=== PATIENT | male | born 1975 | race Caucasian/White ===

== ENCOUNTER 2017-09-26 18:32 | Emergency (ER) | payer MEDICARE, OTHER ==
--- NOTE | 2017-09-26 19:12 | ERNOTE ---
<Jen Crowell - Last Filed: 09/26/17 19:19> Lower Extremity HPI - Narrative Date of Service: 09/26/17 - General Time Seen by Provider: 09/26/17 18:41 Source: patient Exam Limitations: no limitations - Immun/Allergies/Home Medications Immunizations: IMMUNIZATION HX Immunizations Up to Date Yes History of Influenza Vaccine No Hx Pneumococcal Vaccination No Allergies/Adverse Reactions: Allergies Allergy/AdvReac Type Severity Reaction Status Date / Time No Known Allergies Allergy Verified 09/26/17 18:45 Home Medications: HOME MEDICATIONS Fenofibrate,Micronized [Fenofibrate] 134 mg PO DAILY 05/23/14 [Last Taken Unknown] Lisinopril 5 mg PO DAILY 05/23/14 [Last Taken Unknown] Rosuvastatin Calcium [Crestor] 40 mg PO DAILY 05/23/14 [Last Taken Unknown] metFORMIN HCL [Metformin HCl ER] 500 mg PO DAILY 05/23/14 [Last Taken Unknown] Insulin Glargine,Hum.rec.anlog [Lantus Solostar] 10 unit SQ HS 11/28/15 [Last Taken Unknown] Pioglitazone HCl [Actos] 30 mg PO DAILY 11/28/15 [Last Taken Unknown] metFORMIN HCL [Glucophage] 1,000 mg PO HS 11/28/15 [Last Taken Unknown] - History of Present Illness Narrative: This patient presents to the emergency room complaining that 2 days ago in the morning he hit his head on the sink. He does not report any loss of consciousness dizziness and blurry vision at all he did sustain an abrasion to the right forehead when he hit his head on the sink. Patient states that since then he has experienced shaking of his right leg from the knee down and that he is unable to curl his toes strongly plantar-arteaga like he can his left toes. His gait is undisturbed he denies any headache dizziness or blurry vision. Review of Systems - Review of Systems Constitutional: Present: no symptoms reported EYE: Present: no symptoms reported ENT: Present: no symptoms reported Respiratory: Present: no symptoms reported Cardiology: Present: no symptoms reported Gastrointestinal/Abdominal: Present: no symptoms reported Genitourinary: Present: no symptoms reported Musculoskeletal: Present: See HPI Skin: Present: no symptoms reported - Patient's Past Medical History Patient History - Medical: Anxiety, Diabetes Type 2, Depression Patient History - Cardiac/Respiratory: Asthma, Hypertension, Hyperlipidemia Patient History - Cancer: No Hx of Cancer Patient History - Surgical Procedures: No surgical history - Family History Father Family History - Cardiac/Respiratory: Coronary Heart Disease, Myocardial Infarction - Social History Living Situations: home Abuse History: No History of abuse Psych History: Hx of Anxiety, Hx of Depression Smoking Status: Current every day smoker Have you smoked in the past 12 months: Yes Do you dip or chew tobacco: No - Immunizations Immunizations Up to Date: Yes Hx Pneumococcal Vaccination: No History of Influenza Vaccine: No Physical Exam - Physical Exam General Appearance: Present: wd/wn, alert, no apparent distress Head Exam: Present: normal inspection, no evidence of injury Eye Exam: Normal inspection: bilateral, PERRL: bilateral, EOMI: bilateral Ears, Nose, Throat: Present: normal ENT inspection Neck: Present: normal inspection, nontender, supple, full range of motion Respiratory: Present: no respiratory distress, normal breath sounds, no accessory muscle use, chest nontender - no bruits, lungs clear Cardiovascular/Chest: Present: regular rate, rhythm, no murmur, normal peripheral pulses Extremity Exam: Present: normal inspection - there is absolutely no lesions abnormalities deformities of the right lower extremity from the knee down. Patient is well able to plantar flex his toes but not as tight as the left side. The patient is intact, non-tender, normal range of motion, no edema Neurological Exam: Present: alert, oriented, normal mood/affect, no motor/ sensory deficits - with the exception the patient cannot curl his right toes nearly as strong as the left toes. ED Progress - Results and Orders Patient's Lab Results:: I have reviewed the patient's lab results. - Vital Signs Patient's Vital Signs:: I have reviewed the patient's vital signs. Vital Signs: Vital Signs 09/26/17 18:38 Temperature 36.8 C Pulse Rate 97 Respiratory 13 Rate Blood Pressure 190/101 O2 Sat by Pulse 97 Oximetry - EKG EKG: NSR - sinus rhythm without any ST or T changes - Progress/Reassessment Chief Complaint: Lower Extremity Pain/ Injury - Transfer of Care Physician Sign Out: Jen Crowell Receiving Physician: Jasper Lopes Pending Results: CT/MRI results, Labs Expected Disposition: Admit Departure Clinical Impression: Peripheral neuropathy Qualifiers: Peripheral neuropathy type: idiopathic neuropathy, unspecified Qualified Code(s ): G60.9 - Hereditary and idiopathic neuropathy, unspecified Hyperglycemia due to type 2 diabetes mellitus Qualifiers: 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 Condition: Fair Instructions: Peripheral Neuropathy, Hyperglycemia, [id number] Additional Instructions: See your primary care provider as soon as possible. No work this weekend. work on getting control of your blood sugars. Referrals: Daniel Butterfield MD [Primary Care Provider] - <Jasper Lopes - Last Filed: 09/26/17 23:28> Lower Extremity HPI - Immun/Allergies/Home Medications Immunizations: IMMUNIZATION HX Immunizations Up to Date Yes History of Influenza Vaccine No Hx Pneumococcal Vaccination No ED Progress - Results and Orders Results and Orders: Laboratory Tests 09/26/17 09/26/17 09/26/17 19:04 19:35 19:35 WBC 8.3 Hgb 15.4 Hct 44.6 Plt Count 280 ESR 58 H Sodium Potassium Chloride Carbon Dioxide BUN Creatinine Random Glucose Mean Blood Glucose Hemoglobin A1c Calcium Total Bilirubin AST ALT Alkaline Phosphatase C-Reactive Prot, Quant Total Protein Albumin Urine Color Pale yellow Urine Appearance Clear Urine pH 6.0 Ur Specific Hubbard <=1.005 Urine Protein Negative Urine Glucose (UA) >=1000 H Urine Ketones Negative Urine Blood Negative Urine Nitrate Negative Urine Bilirubin Negative Urine Urobilinogen Normal Ur Leukocyte Esterase Negative Urine RBC None seen Urine WBC None seen Ur Epithelial Cells 0-5 Urine Bacteria Trace Urine Culture Comments No culture indicated 09/26/17 09/26/17 19:35 19:35 WBC Hgb Hct Plt Count ESR Sodium 136 Potassium 4.2 Chloride 97 Carbon Dioxide 27.7 BUN 13 Creatinine 1.28 Random Glucose 431 H Mean Blood Glucose 337 Hemoglobin A1c 12.7 H Calcium 9.3 Total Bilirubin 0.3 AST 15 ALT 27 Alkaline Phosphatase 149 C-Reactive Prot, Quant 1.1 H Total Protein 8.0 Albumin 3.4 Urine Color Urine Appearance Urine pH Ur Specific Hubbard Urine Protein Urine Glucose (UA) Urine Ketones Urine Blood Urine Nitrate Urine Bilirubin Urine Urobilinogen Ur Leukocyte Esterase Urine RBC Urine WBC Ur Epithelial Cells Urine Bacteria Urine Culture Comments - Vital Signs Vital Signs: Vital Signs 09/26/17 18:38 Temperature 36.8 C Pulse Rate 97 Respiratory 13 Rate Blood Pressure 190/101 O2 Sat by Pulse 97 Oximetry - CT/Ultrasound CT/Ultrasound Narrative: CT head without: IMPRESSION: 1. REMOTE APPEARING RIGHT BASAL GANGLIA LACUNAR INFARCT. 2. NONSPECIFIC PARANASAL SINUS DISEASE. 3. NO OTHER EVIDENCE FOR ACUTE INTRACRANIAL PATHOLOGY. Electronically signed by Elan Sampson M.D.. - Progress/Reassessment Progress Note-Subjective: 09/25/17 21:30 Pt desires to go to the bathroom. Pt able to walk without assistance. Describes subjective paresthesia but has full sensation. 09/26/17 22:05 Discussed non-specific findings of elevated CRP and ESR. Discussed old lacunar infarct on CT and further workup on risk factors for stroke. Discussed increased risk with elevated blood sugars and he admits that his blood sugars run high frequently
[2017-09-26 19:26] LABS: Urine Bilirubin Negative (NEGATIVE); Urine Blood Negative /ul (NEGATIVE); Urine Ketone Negative (NEGATIVE); Urine Nitrite Negative (NEGATIVE); Urine Protein Negative (NEGATIVE); Urine Specific Gravity <=1.005 SP.GR. (1.005-1.030); Urine Urobilinogen Normal (NORMAL)
[2017-09-26 19:34] LABS: Urine Appearance Clear; Urine Bacteria TRACE; Urine Color Pale Yellow; Urine RBC None Seen /hpf (0-5); Urine WBC None Seen /hpf (0-5)
[2017-09-26 19:42] LABS: Hematocrit 44.6 % (42.0-52.0); Hemoglobin 15.4 gm/dL (13.5-18.0); Mean Cell Volume 95.5 fl (78-100); Mean Corpuscular Hgb Conc 34.5 g/dl (32-36); Neutrophil # 4.9 K/mm3 (1.3-6.0); Neutrophil % 59.2 % (42-75.0); Platelet Count 280 K/mm3 (150-450); Red Blood Count 4.67 M/mm3 (4.7-6.0); Red Cell Distribution Width 11.9 % (11.5-14.0); White Blood Count 8.3 K/mm3 (4.0-10.5)
[2017-09-26 19:58] LABS: Albumin * 3.4 gm/dl (3.4-5.0); Anion Gap 15.5 mmol/L (6.8-13.8); BUN/Creatinine Ratio 10.2 (9.0-21.6); Bilirubin, Total 0.3 mg/dL (0.0-1.1); CRP 1.1 mg/dL (0.0-0.9); Ca. Corrected For Albumin 9.5 mg/dL (8.4-10.2); Calcium * 9.3 mg/dL (7.9-10.9); Carbon Dioxide 27.7 mmol/L (24-32.6); Potassium 4.2 mmol/L (3.4-4.6)
[2017-09-26 19:59] LABS: Hemoglobin A1C 12.7 % (4.00-6.0)
[2017-09-27 02:53] VITALS: BP 153/90
== END 2017-09-26 22:27 | disposition short-term general hospital (02) ==
LOC: ER 18:32
DX: G60.9 Hereditary and idiopathic neuropathy, unspecified (principal); E11.65 Type 2 diabetes mellitus with hyperglycemia

== ENCOUNTER 2017-10-09 13:50 | Inpatient (IN) | payer MEDICARE, OTHER ==
[2017-10-09] MEDS ORDERED: NORMAL SALINE 1,000 ML IV ONE (14:20)
--- NOTE | 2017-10-09 14:21 | ERNOTE ---
Neuro HPI ER Record Presenting Symptoms: other - sluggish in his response according to somebody who lives at his boarding house Time Seen by Provider: 10/09/17 14:03 Source: other - friend Exam Limitations: other - possible underlying cognitive impairment Immunizations: IMMUNIZATION HX Immunizations Up to Date Yes History of Influenza Vaccine Yes Hx Pneumococcal Vaccination Yes Allergies/Adverse Reactions: Allergies Allergy/AdvReac Type Severity Reaction Status Date / Time No Known Allergies Allergy Verified 10/09/17 14:06 Home Medications: HOME MEDICATIONS Lisinopril 5 mg PO DAILY 05/23/14 [Last Taken Unknown] Rosuvastatin Calcium [Crestor] 40 mg PO DAILY 05/23/14 [Last Taken Unknown] metFORMIN HCL [Metformin HCl ER] 500 mg PO BID 05/23/14 [Last Taken Unknown] Insulin Glargine,Hum.rec.anlog [Lantus Solostar] 10 unit SQ HS 11/28/15 [Last Taken Unknown] Pioglitazone HCl [Actos] 30 mg PO DAILY 11/28/15 [Last Taken Unknown] - History of Present Illness Narrative: Patient brought in by somebody who stays at his boarding house who states he just does not appear to be himself. She believes he is slower to respond Onset: other - unknown Severity: mild - Character of Deficits Additional Deficits: Present: other - none Baseline Cognition: Present: alert, oriented x 4 - according to his roommate Baseline Gait: Present: walks w/o assistance Associated Symptoms: Reports: altered mental status - per his friend Prior Treament: Reports: recently seen, treated by physician Review of Systems - Review of Systems Constitutional: Present: See HPI EYE: Present: no symptoms reported ENT: Present: no symptoms reported Respiratory: Present: no symptoms reported Cardiology: Present: no symptoms reported Gastrointestinal/Abdominal: Present: no symptoms reported Genitourinary: Present: no symptoms reported Musculoskeletal: Present: no symptoms reported Skin: Present: no symptoms reported Neurological: Present: anxiety, depressed Endocrine: Present: no symptoms reported Hematologic/Lymphatic: Present: no symptoms reported Psych: Present: no symptoms reported - Patient's Past Medical History Patient History - Medical: Anxiety, Diabetes Type 1, Depression Patient History - Cardiac/Respiratory: Asthma, Hypertension, Hyperlipidemia Patient History - Cancer: No Hx of Cancer Patient History - Surgical Procedures: No surgical history Patient History - Other: None - Family History Father Family History - Cardiac/Respiratory: Coronary Heart Disease, Myocardial Infarction - Social History Living Situations: home Abuse History: No History of abuse Psych History: Hx of Anxiety, Hx of Depression Smoking Status: Current every day smoker Have you smoked in the past 12 months: Yes Alcohol Use: occasionally Drug Use: none - Immunizations Immunizations Up to Date: Yes Hx Pneumococcal Vaccination: Yes History of Influenza Vaccine: Yes Physical Exam - Physical Exam General Appearance: Present: wd/wn, alert, no apparent distress, lethargic Eye Exam: Normal inspection: bilateral, PERRL: bilateral Ears, Nose, Throat: Present: normal pharynx, dry mucous membranes Neck: Present: normal inspection, nontender Respiratory: Present: no respiratory distress, normal breath sounds, no accessory muscle use, chest nontender, lungs clear Cardiovascular/Chest: Present: regular rate, rhythm, no murmur, normal peripheral pulses Gastrointestinal/Abdominal: Present: normal bowel sounds, nontender, nondistended, soft, no organomegaly Rectal Exam: Present: deferred Back Exam: Present: normal inspection, normal range of motion Extremity Exam: Present: normal inspection, non-tender, no edema, normal range of motion Neurological Exam: Present: alert, oriented, normal mood/affect Skin Exam: Present: normal color, warm/dry Lymphatic Exam: Present: no adenopathy ED Progress - Results and Orders Patient's Lab Results:: I have reviewed the patient's lab results. - Vital Signs Patient's Vital Signs:: I have reviewed the patient's vital signs. Vital Signs: Vital Signs 10/09/17 13:53 Temperature 36.3 C L Pulse Rate 83 Respiratory 16 Rate Blood Pressure 156/88 O2 Sat by Pulse 100 Oximetry - CT/Ultrasound CT/Ultrasound Narrative: CT of the head was reviewed by me - Progress/Reassessment Chief Complaint: Altered Mental Status Progress:: Unchanged Plan - Plan Plan: It is entirely possible that the patient has suffered a left frontal lobe ischemic CVA. Patient will need to be admitted for MRI/MRA probable echocardiogram and carotid studies. Unclear exactly when the symptoms started the last time he was seen normal was 1-2 days ago so while TPA was considered is not an option as he do not have a definitive timeline for the administration of thrombolytic. Departure Clinical Impression: CVA (cerebral vascular accident) Qualifiers: CVA mechanism: unspecified Qualified Code(s): I63.9 - Cerebral infarction, unspecified - Departure Disposition: [facility] Condition: Fair
[2017-10-09 14:27] LABS: Hematocrit 49.4 % (42.0-52.0); Hemoglobin 16.7 gm/dL (13.5-18.0); Mean Cell Volume 97.6 fl (78-100); Mean Corpuscular Hgb Conc 33.8 g/dl (32-36); Mean Platelet Volume 9.6 fl (6.0-9.5); Neutrophil # 4.3 K/mm3 (1.3-6.0); Neutrophil % 56.7 % (42-75.0); Platelet Count 286 K/mm3 (150-450); Red Blood Count 5.06 M/mm3 (4.7-6.0); Red Cell Distribution Width 11.9 % (11.5-14.0); White Blood Count 7.6 K/mm3 (4.0-10.5)
[2017-10-09 14:38] LABS: Urine Appearance Clear; Urine Bacteria None Seen; Urine Bilirubin Negative (NEGATIVE); Urine Blood Negative /ul (NEGATIVE); Urine Color Dark Yellow; Urine Ketone 5 mg/dL (NEGATIVE); Urine Mucus Few - 1+; Urine Nitrite Negative (NEGATIVE); Urine Protein 15 mg/dL (NEGATIVE); Urine RBC None Seen /hpf (0-5); Urine Specific Gravity >=1.030 SP.GR. (1.005-1.030); Urine Urobilinogen Normal (NORMAL); Urine WBC TRACE /hpf (0-5)
[2017-10-09 14:40] LABS: ALT 39 U/L (19-67); AST 25 U/L (0-48); Albumin * 4.1 gm/dl (3.4-5.0); Alkaline Phosphatase * 124 U/L (50-170); Anion Gap 13.8 mmol/L (6.8-13.8); BUN/Creatinine Ratio 12.5 (9.0-21.6); Bilirubin, Total 0.6 mg/dL (0.0-1.1); Blood Urea Nitrogen 15 mg/dL (6-23); Ca. Corrected For Albumin 9.6 mg/dL (8.4-10.2); Carbon Dioxide 29.3 mmol/L (24-32.6); Chloride 99 mmol/L (97-106); Glucose * 197 mg/dL (70-110); Potassium 4.1 mmol/L (3.4-4.6); Sodium 138 mmol/L (132-142); Total Protein 9.3 gm/dL (6.2-8.2)
[2017-10-09 14:53] LABS: Cocaine Ur Negative (NEGATIVE); Urine Barbiturate Negative (NEGATIVE); Urine Benzodiazepines Negative (NEGATIVE); Urine Opiates Negative (NEGATIVE); Urine PCP Negative (NEGATIVE); Urine THC Negative (NEGATIVE)
[2017-10-09 15:57] LABS: Prothrombin Time (Patient) 9.8 Seconds (9.0-11.0)
[2017-10-09 15:58] LABS: INR 0.98 INR (0.90-1.10)
[2017-10-09 16:17] LABS: Hemoglobin A1C 13.6 % (4.00-6.0)
[2017-10-09] MEDS: NICOTINE 21 MG PATC TD SCH (18:08)
[2017-10-09] MEDS ORDERED: INSULIN GLARGINE,HUM.REC.ANLOG 100 UNITS/ML VIAL SC SCH (18:30)
[2017-10-09] MEDS: INSULIN REGULAR, HUMAN 100 UNITS/ML VIAL SC SCH (20:30)
[2017-10-09] MEDS: INSULIN GLARGINE,HUM.REC.ANLOG 100 UNITS/ML VIAL SC SCH (20:55)
[2017-10-10 06:25] LABS: Iron 63 mcg/dL (35-120); Transferrin Sat. (% Sat.) 23 % (15-55)
--- NOTE | 2017-10-10 08:27 | HP ---
Chief Complaint - Chief Complaint Date of Service: 10/09/17 Time of Service: 17:00 Chief Complaint: "I think I had I had a light stroke a week ago". Difficulty in talking. History of Present Illness: Patient is a 41-year-old WM with a history of poorly controlled DM, nicotine abuse who apparently came to the ER 1 week ago because of RT leg weakness/ shaking and a fall when he hit head against a sink. CT of the head W/O on revealed remote-appearing right-sided basal ganglia lacunar infarct, nonspecific paranasal sinus disease and no focal abnormal hypodensities to suggest acute vascular territory infarcts. Patient presents today with right-sided leg and arm weakness and confusion and difficulty in speech or 1-[address] of head W/O on 10/09/17: Left frontal lobe hypodensity infarct/mass. Recommend head MRI w/o and w/for further evaluation. Labs on admission: A1c 13.6[ average 367 mg/dl]. Patient had dysarthria and right-sided weakness on examination. Patient states he may have type 1 diabetes; need to get old records for clarification - Patient's Past Medical History Additional info: PAST MEDICAL HISTORY: Diabetes type II, hyperlipidemia, anxiety and depression, asthma/COPD. Patient History - Cancer: No Hx of Cancer Patient History - Surgical Procedures: No surgical history Patient History - Other: None - Family History Mother Family History - Medical: - 66- kidney and uterine Cancer. Father Family History - Cardiac/Respiratory: Myocardial Infarction - 65- CABG ; alive 67 Family History - Cancer: No pertinent family hx Sister Family History - Medical: Other - 40-PCOS - Social History Living Situations: alone Abuse History: No History of abuse Psych History: Hx of Anxiety, Hx of Depression Smoking Status: Current every day smoker - 1.5 PPD since age 21 Have you smoked in the past 12 months: Yes Do you dip or chew tobacco: No Patient requests Smoking Cessation Consult: Yes Initiate information on Smoking Cessation: Yes Alcohol Use: occasionally - few beers on weekend Drug Use: none - Immunizations Immunizations Up to Date: Yes Hx Pneumococcal Vaccination: Yes History of Influenza Vaccine: Yes Immunizations: IMMUNIZATION HX Immunizations Up to Date Yes History of Influenza Vaccine Yes Hx Pneumococcal Vaccination Yes Allergies/Adverse Reactions: Allergies Allergy/AdvReac Type Severity Reaction Status Date / Time No Known Allergies Allergy Verified 10/09/17 16:42 Home Medications: HOME MEDICATIONS Lisinopril 5 mg PO DAILY 05/23/14 [Last Taken 10/09/17 09:00] Rosuvastatin Calcium [Crestor] 40 mg PO DAILY 05/23/14 [Last Taken 10/08/17 21: 00] metFORMIN HCL [Metformin HCl ER] 500 mg PO BID 05/23/14 [Last Taken 10/09/17 09: 00] Insulin Glargine,Hum.rec.anlog [Lantus Solostar] 40 unit SQ HS 11/28/15 [Last Taken 10/08/17 21:00] Pioglitazone HCl [Actos] 30 mg PO DAILY 11/28/15 [Last Taken 10/08/17 21:00] Exam - Exam Vital Signs: Vital Signs - Last Taken Temp 36.4 C L 10/10/17 06:42 Pulse 64 10/10/17 06:42 Resp 18 10/10/17 06:42 BP 131/77 10/10/17 06:42 Pulse Ox 94 10/10/17 06:42 Constitutional: Present: Young - chronically ill looking, has difficulty in getting out words. Eye Exam: bilateral eye: PERRL, EOMI Neck: Present: normal inspection, trachea midline Respiratory: Present: no respiratory distress, no accessory muscle use, decreased breath sounds Cardiovascular/Chest: Present: regular rate, rhythm. Absent: tachycardia Peripheral Pulses: carotid (R): 2+, carotid (L): 2+ Abdomen: Present: Normal bowel sounds, soft, nontender, nondistended /Rectal: Present: Exam deferred Neurologic: Present: oriented x 3, abnormal gait, facial droop - RT, motor weakness - RT sided RUE- 3/5; RLL-4/5; RT- Babinski's positive, LT- WNL., other - dysarthria present Eye contact: Present: cooperative, good eye contact Thoughts: Present: normal thought pattern, no apparent hallucination Diagnostic Studies: Laboratory Tests 10/09/17 14:26 WBC 7.6 Hgb 16.7 Hct 49.4 Plt Count 286 10/09/17 14:26 Plasma Sodium 140 Potassium 4.1 Chloride 99 Carbon Dioxide 29.3 BUN 15 Creatinine 1.20 Est GFR (Non-Af Amer) 70 Calcium Adj for Albumin 9.6 Magnesium 2.0 AST 25 ALT 39 Alkaline Phosphatase 124 Total Protein 9.3 H Albumin 4.1 10/09/17 10/10/17 10/10/17 14:26 05:40 06:00 Mean Blood Glucose 367 Hemoglobin A1c 13.6 H Vitamin B12 [address] W/O:10/09/17: Comparison 09/26/17. 1. There is hypodensity in the left frontal lobe compatible with infarct. Underlying mass cannot be excluded. Recommend head MRI with and without contrast for further evaluation. No positive mass effect/midline shift. No ICH. 2. Remote appearing right basal ganglia lacunar infarct. CXR: 10/10/17: PA and LAT: negative for acute pathology. Assessment/Plan - Narrative Narrative: 1. Acute CVA with ongoing LEFT frontal infarct: Obtain MRI w and w/o for further evaluation. Obtain MRA of head and neck. Obtain ultrasound of the carotids. Start atorvastatin 40 mg daily. Obtain echocardiogram. Discussed in detail about the patient with the stroke team at the [facility] [ Dr. Gillespie]. start aspirin 81/325 mg daily. 2. Poorly controlled DM: A1c over 13.0. Patient states he may have T1 DM however he is on Actos and metformin. Obtain old records. Currently on Lantus 30 units at bedtime and Humalog 8 units with meals. Glucerna at bedtime. 3. Supportive care: Obtain PT/OT and speech therapy. 4. DVT prophylaxis: Enoxaparin 40 mg subq daily CODE STATUS: Full code. 5. Nicotine abuse: 1 pack per day since age 21. Currently on nicotine patch 21 mg per day. - Assessment/Plan (1) Acute thromboembolic cerebrovascular accident (CVA) Assessment: Rt sided weakness with LT frontal infarct. Problem: Acute (2) Uncontrolled diabetes mellitus Problem: Chronic Qualifiers: Diabetes mellitus type: type 2 Diabetes mellitus supervisor intermediates insulin use: unspecified detention insulin use status (3) Nicotine abuse Assessment: 1 PPD since age 21 yrs. Problem: Chronic (4) Hyperlipidemia Assessment: on Rosuvastatin 40 mg PO daily Problem: Chronic Qualifiers: Hyperlipidemia type: unspecified Qualified Code(s): E78.5 - Hyperlipidemia , unspecified
[2017-10-10] MEDS: NORMAL SALINE 1,000 ML IV PRN (08:56)
[2017-10-10] MEDS: INSULIN LISPRO 100 UNITS/ML VIAL SC SCH ×3 (09:01→18:18)
[2017-10-10] MEDS: INSULIN REGULAR, HUMAN 100 UNITS/ML VIAL SC SCH (09:28)
[2017-10-10] MEDS: ASPIRIN 81 MG TABLET.DR PO SCH (17:32)
[2017-10-10] MEDS: ENOXAPARIN SODIUM 40 MG/0.4 ML SYRG SC SCH (17:32)
[2017-10-10] MEDS: NICOTINE 21 MG PATC TD SCH (17:32)
[2017-10-10] MEDS ORDERED: INSULIN LISPRO 100 UNITS/ML VIAL SC ONE (18:17)
--- NOTE | 2017-10-10 18:23 | PN ---
Subjective - Date and Time Seen Date: 10/10/17 Time: 18:19 Subjective Narrative: feels a little better; discussed with patient MRI results. He spent most of the day undergoing testing including MRI, US of carotids and echocardiogram. Speech is slightly improved. Did not undergo any PT/OT. Admits to be being a little depressed and noncompliant with most medications. Objective - Review of Systems Generalized/Overall Review: Denies: Weakness Respiratory: Denies: Cough, Shortness of Breath Cardiac: Denies: Chest Pain, Edema - Vitals Vitals: Last Vital Signs Temp 36.5 C 10/10/17 14:44 Pulse 64 10/10/17 14:44 Resp 18 10/10/17 14:44 BP 117/65 10/10/17 14:44 Pulse Ox 97 10/10/17 14:44 - Exam Constitutional: Present: Young, Looks Older than stated age ENT Exam: Present: hearing grossly normal Neck: Present: normal inspection, trachea midline Cardiovascular/Chest: Present: regular rate, rhythm. Absent: no edema Abdomen: Present: Normal bowel sounds, soft, nontender Extremity: Present: other - RT sided weakness present - 3/5 RUE; 4/5 RLL. Eye contact: Present: cooperative, good eye contact, normal speech Assessment/Plan - Problems/Diagnosis (1) Acute thromboembolic cerebrovascular accident (CVA) Problem: Acute Narrative: After discussion with stroke team at [facility]; patient was started on baby aspirin 81 mg daily, atorvastatin 40 mg daily. 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 (4) Hyperlipidemia Problem: Chronic Qualifiers: Hyperlipidemia type: unspecified Qualified Code(s): E78.5 - Hyperlipidemia , unspecified Narrative: Atorvastatin 40 mg daily
[2017-10-10] MEDS ORDERED: LORazepam 0.5 MG TABLET PO ONE (20:42)
[2017-10-10] MEDS: CYANOCOBALAMIN 1,000 MCG TABLET PO SCH (21:21)
[2017-10-10] MEDS: ATORVASTATIN CALCIUM 40 MG TABLET PO SCH (21:22)
[2017-10-10] MEDS: INSULIN GLARGINE,HUM.REC.ANLOG 100 UNITS/ML VIAL SC SCH (21:24)
[2017-10-11] MEDS: NORMAL SALINE 1,000 ML IV PRN (00:03)
[2017-10-11] MEDS: INSULIN LISPRO 100 UNITS/ML VIAL SC SCH ×3 (07:21→17:15)
[2017-10-11] MEDS: CYANOCOBALAMIN 1,000 MCG TABLET PO SCH (08:35)
[2017-10-11] MEDS: ASPIRIN 81 MG TABLET.DR PO SCH (09:17)
--- NOTE | 2017-10-11 10:04 | PN ---
Subjective - Date and Time Seen Date: 10/11/17 Time: 09:00 Subjective Narrative: patient seen at bedside. admits to feeling a depressed due to several reasons including financial. states speech and RT sided weakness gradually improving. Objective - Review of Systems Generalized/Overall Review: Reports: Weakness. Denies: Chills, Fever EENTM: Denies: Blurred Vision Respiratory: Denies: Cough, Shortness of Breath Cardiac: Denies: Chest Pain, Edema - Vitals Vitals: Vital Signs Temp 36.9 C 10/11/17 08:12 Pulse 69 10/11/17 08:12 Resp 16 10/11/17 08:12 BP 152/80 10/11/17 08:12 Pulse Ox 96 10/11/17 08:12 - EKG/Xray Findings EKG: NSR - Exam Constitutional: Present: Young, Looks Older than stated age - alert and oriented x3 , with less dysarthria ENT Exam: Present: hearing grossly normal - poor dentition Neck: Present: normal inspection, trachea midline Respiratory: Present: normal breath sounds, no accessory muscle use Cardiovascular/Chest: Present: regular rate, rhythm. Absent: tachycardia Abdomen: Present: Normal bowel sounds, soft, nontender, no masses Extremity: Present: normal inspection. Absent: pedal edema Skin Exam: Present: normal color, warm/dry Neurologic: Present: motor weakness - RT sided weakness RT UE-3/5; RT.L.L. 4/5, depressed affect Appearance: Present: appropriate appearance, appropriate insight Assessment/Plan Plan Narrative: 1. Acute CVA with ongoing LEFT frontal and parietal infarct: MRI of brain w/and w/o [10/10/17] shows: acute cortical infarction involving the left anterior cerebral territory involving the medial LT frontal lobe and the superior medial left parietal lobe. Small chronic lacunar infarct in the lateral right basal ganglia/periventricular white matter present. US of carotids:[10/10/17]: Minimal to mild bilateral plaque without evidence for hemodynamically significant stenosis in either carotid system. Normal antegrade flow in the vertebral arteries. Echocardiogram TTE[10/10/17] borderline concentric LVH with EF 60-65%. Normal LV function. Diastolic dysfunction present. Trace MR, negative for septal defect. 2. Poorly controlled DM: A1c over 13.0. Patient states he may have T1 DM however he is on Actos and metformin. Obtain old records. Currently on Lantus 30 units at bedtime and Humalog 8 units with meals. Glucerna at bedtime. 3. Supportive care: Obtain PT/OT and speech therapy. 4. DVT prophylaxis: Enoxaparin 40 mg subq daily CODE STATUS: Full code. 5. Nicotine abuse: 1 pack per day since age 21. Currently on nicotine patch 21 mg per day. - Problems/Diagnosis (1) Acute thromboembolic cerebrovascular accident (CVA) Problem: Acute (2) Uncontrolled diabetes mellitus Problem: Chronic Qualifiers: Diabetes mellitus type: type 2 Diabetes mellitus assisted insulin use: unspecified terminal make up operator insulin use status (3) Nicotine abuse Problem: Chronic (4) Hyperlipidemia Problem: Chronic Qualifiers: Hyperlipidemia type: unspecified Qualified Code(s): E78.5 - Hyperlipidemia , unspecified
[2017-10-11] MEDS: SERTRALINE HCL 50 MG TABLET PO SCH (10:35)
[2017-10-11] MEDS: ENOXAPARIN SODIUM 40 MG/0.4 ML SYRG SC SCH (17:02)
[2017-10-11] MEDS: NICOTINE 21 MG PATC TD SCH (17:03)
[2017-10-11] MEDS: INSULIN GLARGINE,HUM.REC.ANLOG 100 UNITS/ML VIAL SC SCH (20:33)
[2017-10-11] MEDS: ATORVASTATIN CALCIUM 40 MG TABLET PO SCH (20:33)
[2017-10-12] MEDS: INSULIN LISPRO 100 UNITS/ML VIAL SC SCH ×3 (06:48→17:05)
[2017-10-12] MEDS: CYANOCOBALAMIN 1,000 MCG TABLET PO SCH (08:15)
[2017-10-12] MEDS: SERTRALINE HCL 50 MG TABLET PO SCH (08:15)
[2017-10-12] MEDS: ASPIRIN 81 MG TABLET.DR PO SCH (08:15)
--- NOTE | 2017-10-12 12:21 | PN ---
Subjective - Date and Time Seen Date: 10/12/17 Time: 12:16 Subjective Narrative: ambulating better; discussed with Dr. Rust on 10/11/17 regarding possible transfer to rehabilitation in [place] on 10/14/17. Patient feels his doing better overall. Getting PT on the weekend. Was started on sertraline 50 mg yesterday. Discussed test results with the patient. Objective - Review of Systems Generalized/Overall Review: Reports: Weakness - RT side Respiratory: Denies: Cough, Shortness of Breath Cardiac: Denies: Chest Pain, Edema, Palpitations Neurological: Reports: Depressed - Vitals Vitals: Last Vital Signs Temp 36.3 C L 10/12/17 10:39 Pulse 77 10/12/17 10:39 Resp 20 10/12/17 10:39 BP 118/72 10/12/17 10:39 Pulse Ox 95 10/12/17 10:39 - EKG/Xray Findings EKG: NSR - Exam Constitutional: Present: Young, Looks Older than stated age - alert and oriented X 3. ENT Exam: Present: moist mucous membranes - poor dentition Neck: Present: normal inspection, trachea midline Respiratory: Present: normal breath sounds, no accessory muscle use Cardiovascular/Chest: Present: regular rate, rhythm, no murmur. Absent: tachycardia Abdomen: Present: Normal bowel sounds, soft, nontender, no masses Extremity: Present: normal inspection, no pedal edema Neurologic: Present: motor weakness - RT sided Eye contact: Present: cooperative, good eye contact Assessment/Plan Plan Narrative: 1. Acute CVA with LEFT frontal and parietal infarct: MRI BRAIN W W/O:[10/10/17] shows: acute cortical infarction involving the left anterior cerebral territory involving the medial LT frontal lobe and the superior medial left parietal lobe. Small chronic lacunar infarct in the lateral right basal ganglia/periventricular white matter present. US CAROTIDS:[10/10/17]: Minimal to mild bilateral plaque without evidence for hemodynamically significant stenosis in either carotid system. Normal antegrade flow in the vertebral arteries. ECHOCARDIOGRAM: TTE[10/10/17] borderline concentric LVH with EF 60-65%. Normal LV function. Diastolic dysfunction present. Trace MR, negative for septal defect. MRI/MRA HEAD W/O[10/11/17]: 1. Focal occlusion of the A2 segment of the left anterior cerebral artery with somewhat diminished enhancement of the more distal segments of the left JEFF. 2. 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 3. No evidence for intracranial aneurysm. 2. Poorly controlled T2DM: A1c over 13.0. On 30 units of Lantus at bedtime, and 5 units of Humalog 3 times a day with meals with a sliding scale. 3. Depression: Sertraline 50 mg by mouth daily started on 10/11/17. 4. Borderline B12 levels: B12 228 pg/ml; start on B12 1 mg by mouth daily. 5. Supportive care: Obtain PT/OT and speech therapy. 6. DVT prophylaxis: Enoxaparin 40 mg subq daily CODE STATUS: Full code. 7. Nicotine abuse: 1 pack per day since age 21. Currently on nicotine patch 21 mg per day. Possible transfer to [place] [facility] on 10/14/17. - Problems/Diagnosis (1) Acute thromboembolic cerebrovascular accident (CVA) Problem: Acute (2) Uncontrolled diabetes mellitus Problem: Chronic Qualifiers: Diabetes mellitus type: type 2 Diabetes mellitus usp insulin use: unspecified usp insulin use status (3) Nicotine abuse Problem: Chronic (4) Hyperlipidemia Problem: Chronic Qualifiers: Hyperlipidemia type: unspecified Qualified Code(s): E78.5 - Hyperlipidemia , unspecified (5) Depression Problem: Acute Qualifiers: Depression Type: reactive depression Qualified Code(s): F32.9 - Major depressive disorder, single episode, unspecified (6) Low vitamin B12 level Problem: Acute
[2017-10-12] MEDS: ENOXAPARIN SODIUM 40 MG/0.4 ML SYRG SC SCH (17:07)
[2017-10-12] MEDS: NICOTINE 21 MG PATC TD SCH (18:46)
[2017-10-12] MEDS: ATORVASTATIN CALCIUM 40 MG TABLET PO SCH (20:34)
[2017-10-12] MEDS: INSULIN GLARGINE,HUM.REC.ANLOG 100 UNITS/ML VIAL SC SCH (20:34)
[2017-10-13] MEDS: INSULIN LISPRO 100 UNITS/ML VIAL SC SCH ×4 (06:52→16:51)
[2017-10-13] MEDS: SERTRALINE HCL 50 MG TABLET PO SCH (10:08)
[2017-10-13] MEDS: CYANOCOBALAMIN 1,000 MCG TABLET PO SCH (10:08)
[2017-10-13] MEDS: ASPIRIN 81 MG TABLET.DR PO SCH (10:08)
--- NOTE | 2017-10-13 15:09 | PN ---
Subjective - Date and Time Seen Date: 10/13/17 Time: 14:37 Subjective Narrative: patient has difficulty in talking; mostly says 'yes'/'no'. Has difficulty in sleeping. Brother at bedside. States brother was in 'special ed' and has "MR "and understanding/IQ upto fourth grade level. Objective - Review of Systems Generalized/Overall Review: Reports: Weakness - RT side Respiratory: Denies: Cough, Shortness of Breath Cardiac: Denies: Chest Pain, Edema - Vitals Vitals: Vital Signs Temp 36.3 C L 10/13/17 11:03 Pulse 86 10/13/17 11:03 Resp 20 10/13/17 11:03 BP 115/74 10/13/17 11:03 Pulse Ox 97 10/13/17 11:03 - Exam Constitutional: Present: Young, Looks Older than stated age - alert and oriented x 3 ENT Exam: Present: moist mucous membranes - poor dentition Neck: Present: normal inspection, trachea midline Respiratory: Present: lungs clear, normal breath sounds, no accessory muscle use Cardiovascular/Chest: Present: regular rate, rhythm, no murmur. Absent: tachycardia Abdomen: Present: Normal bowel sounds, soft, nontender, no masses Neurologic: Present: motor weakness - RT side Eye contact: Present: cooperative, good eye contact Assessment/Plan Plan Narrative: 1. Acute CVA with LEFT frontal and parietal infarct: MRI BRAIN W W/O:[10/10/17] shows: acute cortical infarction involving the left anterior cerebral territory involving the medial LT frontal lobe and the superior medial left parietal lobe. Small chronic lacunar infarct in the lateral right basal ganglia/periventricular white matter present. US CAROTIDS:[10/10/17]: Minimal to mild bilateral plaque without evidence for hemodynamically significant stenosis in either carotid system. Normal antegrade flow in the vertebral arteries. ECHOCARDIOGRAM: TTE[10/10/17] borderline concentric LVH with EF 60-65%. Normal LV function. Diastolic dysfunction present. Trace MR, negative for septal defect. MRI/MRA HEAD W/O[10/11/17]: 1. Focal occlusion of the A2 segment of the left anterior cerebral artery with somewhat diminished enhancement of the more distal segments of the left JEFF. 2. 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 3. No evidence for intracranial aneurysm. 2. Poorly controlled DM: A1c over 13.0. On 30 units of Lantus at bedtime, and 5 units of Humalog 3 times a day with meals with a sliding scale. 3. Depression: Patient on citolopram 20 mg PO daily and trazadone 25 mg PO HS from 10/03/17. 4. Borderline B12 levels: B12 228 pg/ml; start on B12 1 mg by mouth daily. 5. Supportive care: Obtain PT/OT and speech therapy. 6. DVT prophylaxis: Enoxaparin 40 mg subq daily CODE STATUS: Full code. 7. Nicotine abuse: 1 pack per day since age 21. Currently on nicotine patch 21 mg per day on in am , off in pm. 8. MENTAL RETARDATION: was in special education and graduated. IQ and understanding - 4th /5th grade per family. Possible transfer to [place] [facility] on 10/14/17. - Problems/Diagnosis (1) Acute thromboembolic cerebrovascular accident (CVA) Problem: Acute (2) Uncontrolled diabetes mellitus Problem: Chronic Qualifiers: Diabetes mellitus type: type 2 Diabetes mellitus custodial insulin use: unspecified custodial insulin use status (3) Nicotine abuse Problem: Chronic (4) Hyperlipidemia Problem: Chronic Qualifiers: Hyperlipidemia type: unspecified Qualified Code(s): E78.5 - Hyperlipidemia , unspecified (5) Depression Problem: Acute Qualifiers: Depression Type: unspecified Qualified Code(s): F32.9 - Major depressive disorder, single episode, unspecified (6) Low vitamin B12 level Problem: Acute
[2017-10-13] MEDS: NICOTINE 21 MG PATC TD SCH (16:50)
[2017-10-13] MEDS: ENOXAPARIN SODIUM 40 MG/0.4 ML SYRG SC SCH (16:51)
[2017-10-13] MEDS ORDERED: traZODone HCL 50 MG TABLET PO SCH (20:00)
[2017-10-13] MEDS ORDERED: hydrOXYzine HCL 25 MG TABLET PO SCH (20:00)
[2017-10-13] MEDS: ATORVASTATIN CALCIUM 40 MG TABLET PO SCH (21:19)
[2017-10-13] MEDS: INSULIN GLARGINE,HUM.REC.ANLOG 100 UNITS/ML VIAL SC SCH (21:19)
[2017-10-14] MEDS: INSULIN LISPRO 100 UNITS/ML VIAL SC SCH ×4 (07:08→12:01)
[2017-10-14] MEDS ORDERED: CITALOPRAM HYDROBROMIDE 20 MG TABLET PO SCH (09:00)
[2017-10-14] MEDS: ASPIRIN 81 MG TABLET.DR PO SCH (09:10)
[2017-10-14] MEDS: CYANOCOBALAMIN 1,000 MCG TABLET PO SCH (09:10)
--- NOTE | 2017-10-14 10:13 | ECHO ---
This report is available in the EMR
[2017-10-14 15:32] VITALS: BP 113/69
--- NOTE | 2017-10-14 15:49 | DS ---
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 DATE OF DISCHARGE: 10/14/17. DIAGNOSTICS: 1. CT HEAD W/O: 10/09/17. 2. BRAIN MRI W W/O: 10/10/17. 3. ULTRASOUND CAROTIDS: 10/10/17. 4. TRANSTHORACIC ECHOCARDIOGRAM: 10/10/17. 5. MRI/MRA HEAD W/O: 10/11/17. DISCHARGE SUMMARY: Alcides Still is a 41-year-old WF with a history of poorly controlled DM, nicotine abuse, mild MR who was admitted to the hospital because of RT. U.E weakness worse than RT.L.E.weakness and difficulty in speech or 1-2 days duration. He came to the ER 1 week ago on 09/26/17 because of RT leg weakness and a fall when he hit his head against the sink. CT head W/O on 09/26/17 showed a remote-appearing right-sided basal ganglia lacunar infarct. CT head W/ O on 10/09/17: Left frontal lobe hypodensity infarct/mass. Recommend head MRI w and w/o for furthur evaluation. A1c 13.6 on admission. Patient started on baby aspirin 81 mg daily and atorvastatin 40 mg daily. Obtained PT/OT/speech therapy. Started on Lantus 30 units at bedtime with Humalog 5 units with meals with a sliding scale with improvement in blood sugars. Patient underwent an MRI brain W W/O on 10/10/17 which showed acute cortical infarction involving the left anterior cerebral artery territory involving the medial left frontal lobe and the superior medial left parietal lobe. Small chronic lacunar infarct in the lateral right basal ganglia periventricular white matter. US CAROTIDS:[10/10/17]: Minimal to mild bilateral plaque without evidence for hemodynamically significant stenosis in either carotid system. Normal antegrade flow in the vertebral arteries. ECHOCARDIOGRAM: TTE[10/10/17] borderline concentric LVH with EF 60-65%. Normal LV function. Diastolic dysfunction present. Trace MR, negative for septal defect. MRI/MRA HEAD W/O[10/11/17]: 1. Focal occlusion of the A2 segment of the left anterior cerebral artery with somewhat diminished enhancement of the more distal segments of the left JEFF. 2. 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 3. No evidence for intracranial aneurysm. Patient stated he felt depressed and had difficulty in sleeping because he was which he was started on citalopram 20 mg daily and trazodone 50 mg at bedtime. He was also started on a nicotine patch 21 mg daily. Initially he was thought to be a candidate for inpatient rehabilitation at [place] however PT at [facility] felt he made rapid progress and he could continue PT at home. Patient is being discharged in a stable condition. Follow-up with PCP with Dr. Butterfield in 1-2 weeks with a log of blood sugars. More than 30 minutes was spent in examination of discharging patient, reconciliation of medications, discussing plan of care, preparing and dictating discharge summary. Procedures Performed: none Discharge Disposition: Home self care Disposition: Other home health Condition: Undetermined Discharge Diet: Consistent carbs, Low salt, Low fat/chol, High Fiber Care Home Therapy: Physicial Therapy, Occupation Therapy Referrals: Daniel Butterfield MD [Primary Care Provider] - Problem Oriented Discharge Instructions to Patient/Family: Insulin Treatment for Diabetes, Stroke Prevention, [id number] Additional Patient Instructions (free text): [facility]. Please fax orders, face to face and call report upon discharge. MEDS DC'D 1. Actos. 2. Metformin. 3. Lantus 40 units. 4. Lisinopril 5 mg daily. 5. Rosuvastatin/Crestor 40 mg daily NEW MEDICATIONS/NEW DOSES: 1. Aspirin 81 mg a day. 2. Vitamin D3 2000 units daily with food. 3. Vitamin B12 1 mg daily 4. Lantus 30 units at bedtime. 5. Humalog 5 units 3 times a day with/after mealsw/sliding scale. 6. Lisinopril 2.5 mg at bedtime. 7. Atorvastatin/Lipitor 40 mg daily. 8. Citalopram 20 mg daily in the morning. 9. Trazodone 50 mg at bedtime. 10. Nicotine patches: 21 mg daily for one month, 14 mg daily for second month, 7 mg daily for third month[ use patch in am and take off at 1-2 hrs before bedtime]. Patient strongly encouraged to quit smoking. Aspirin 81 mg, vitamin D3 2000 units, vitamin B12 1 mg are OTC meds and are cheaper to buy in a bottle of 100. Follow-up with PCP in 1-2 weeks. Follow up with Dr. Butterfield 10/21 at 11:00 . Prescriptions (Any new or edited meds): Aspirin [Aspirin Enteric Coated] 81 mg PO DAILY #100 tablet. Cholecalciferol (Vitamin D3) [Vitamin D3] 2,000 unit PO DAILY #100 capsule Citalopram Hydrobromide [Celexa] 20 mg PO DAILY #90 tablet Cyanocobalamin [Vitamin B-12] 1,000 mcg PO DAILY #100 tablet Insulin Glargine,Hum.rec.anlog [Lantus] 30 units SC HS #1 vial Insulin Lispro [Humalog] 5 units SC ACINS #1 vial Insulin Lispro [Humalog] 0 - 6 units SQ AC #1 vial Lisinopril 2.5 mg PO DAILY@2100 #90 tablet Nicotine [Nicoderm] 21 mg TD Q24H #30 patch.td24 traZODone HCL [Desyrel] 50 mg PO DAILY@2000 #30 tablet Complete Home Medications List: Complete Home Medication List: Aspirin [Aspirin Enteric Coated] 81 mg PO DAILY #100 tablet. 10/14/17 Atorvastatin Calcium [Lipitor] 40 mg PO DAILY #90 tablet 10/14/17 Cholecalciferol (Vitamin D3) [Vitamin D3] 2,000 unit PO DAILY #100 capsule 10/14 Citalopram Hydrobromide [Celexa] 20 mg PO DAILY #90 tablet 10/14/17 Cyanocobalamin [Vitamin B-12] 1,000 mcg PO DAILY #100 tablet 10/14/17 Insulin Glargine,Hum.rec.anlog [Lantus] 30 units SC HS #1 vial 10/14/17 Insulin Lispro [Humalog] 0 - 6 units SQ AC #1 vial 10/14/17 Insulin Lispro [Humalog] 5 units SC ACINS #1 vial 10/14/17 Lisinopril 2.5 mg PO DAILY@2099 #90 tablet 10/14/17 Nicotine [Nicoderm] 21 mg TD Q24H #30 patch.td24 10/14/17 traZODone HCL [Desyrel] 50 mg PO DAILY@1999 #30 tablet 10/14/17
== END 2017-10-14 17:20 | disposition home health service (06) | DRG 65 ==
LOC: ER 13:50 → MS 15:52 → UNDOADMOB 15:52 → OBSVTOIN 10-10 16:50
PROVIDERS: ADMIT Internal Medicine; ATTEND Internal Medicine
PROC: B246ZZZ Ultrasonography of Right and Left Heart (ICD-10-PCS; principal; 2017-10-10)
DX: I63.00 Cerebral infarction due to thrombosis of unspecified precerebral artery (principal); G81.91 Hemiplegia, unspecified affecting right dominant side; R47.1 Dysarthria and anarthria; R40.2412 Glasgow coma scale score 13-15, at arrival to emergency department; E53.8 Deficiency of other specified B group vitamins; E78.5 Hyperlipidemia, unspecified; I10 Essential (primary) hypertension; E11.65 Type 2 diabetes mellitus with hyperglycemia; F32.9 Major depressive disorder, single episode, unspecified; F17.210 Nicotine dependence, cigarettes, uncomplicated; Z79.4 Long term (current) use of insulin
CPT/HCPCS: 36415; 70450; 70544; 70553; 71020; 80053; 80307; 81001; 82009; 82607; 83036; 83540; 83550; 83735; 84443; 85025; 85610; 92507; 92523; 93306; 93880; 97110; 97112; 97116; 97163; 97166; 99283; G0378; G0481